=== PATIENT | female | born 1965 | race African-American/Black ===

== ENCOUNTER 2023-06-04 18:13 | Emergency (ER) | payer MEDICARE, OTHER ==
[~2023-06-04] VITALS: Ht 167.6 cm; Wt 65.9 kg
[2023-06-04 18:15] VITALS: TEMP 98.4
[2023-06-04 18:50] VITALS: BP 147/81; PULSE 87; RESP 16
[2023-06-04] MEDS ORDERED: PRED-549 PO (19:27)
[2023-06-04] MEDS ORDERED: PredniSONE 20 MG TABLET PO ONE (19:30)
== END 2023-06-04 19:51 | disposition home or self-care (01) ==
LOC: EMS 18:16
DX: M08.00 Unspecified juvenile rheumatoid arthritis of unspecified site (principal); Z79.52 Long term (current) use of systemic steroids; Z76.0 Encounter for issue of repeat prescription; Z96.659 Presence of unspecified artificial knee joint
CPT/HCPCS: 99283; J7512